=== PATIENT | male | born 1975 | race Two or more races ===

== ENCOUNTER 2017-06-10 07:51 | Emergency (ER) | payer OTHER ==
[~2017-06-10] VITALS: Ht 172.7 cm; Wt 88.6 kg
[2017-06-10 08:16] VITALS: BP 126/87; PULSE 102; RESP 18; O2SAT 100
--- NOTE | 2017-06-10 09:14 | ED.REPORT ---
HPI-Eye Problem Date of Service Jun 10, 2017 ED Provider: Dev Mar Pt is a generally healthy 41 y/o male presenting to the ED c/o bilateral eye pain onset this morning. 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 He was wearing a welding helmet with dark eye protectors at that time. This morning he woke up experiencing bilateral eye burning pain and redness with associated nasal congestion. It feels like something is scratching his eye and he is having difficulty keeping his eyes open. Nursing Notes Stated Complaint: EYES ARE RED AND BURNING Chief Complaint: Eye Nursing Notes Reviewed: Yes Allergies: Coded Allergies: No Known Allergies (Unverified , 06/10/17) Scheduled Polymyxin B Sulf/Trimethoprim (Polymyxin B-Tmp Eye Drops) 10 Ml Drops 1-2 GTTS AFFECT_EYE QID 7 days Scheduled PRN Ibuprofen (Ibuprofen) 800 Mg Tablet 800 MG PO TID PRN PRN For Pain Naphazoline HCl/Pheniramine (Allergy Eye Drops) 0.025 %-0.3 % Drops 1 GTT AFFECT _EYE QID PRN PRN For Itching diphenhydrAMINE HCl (Benadryl) 25 Mg Capsule 25 MG PO QID PRN PRN For Itching General Time Seen by MD: 09:12 Chief Complaint Both eyes affected, Pain after welding Hx Obtained From: Patient Arrived By: Walk-in Sudden in Onset?: No Onset Occurred: 1 - 4 hours ago Symptom Duration: Since onset Progression Since Onset: Constant Location: : Eye left: Eye right Quality: Burning Severity: Current: Moderate Severity: Maximum: Moderate Recent Healthcare: No recent hospitalization Similar Sx Previous: No Past Medical History Past Medical History Hyperlipidemia Past Surgical History None reported Smoking History Unknown if Ever Smoker Ambulatory Status Independent Review of Systems Constitutional: Denies: Fever Eyes: Reports: Eye pain bilateral, Redness bilateral Ears / Nose / Throat: Reports: Nasal congestion Complete sys rev & neg: except as marked. Physical Exam Initial Vital Signs Vital Signs (First) Date Time Temp Pulse Resp B/P Pulse Ox O2 Delivery O2 Flow Rate FiO2 06/10/17 08:16 102 18 126/87 100 Room Air Initial VS: Reviewed, Vital signs abnormal ENT: Mucous membranes moist, Conjunctiva normal Neck: Full range of motion Respiratory: No respiratory distress Cardiovascular: Intact distal pulses Abdomen / GI: No distention Extremities: Vascular intact, Neuro intact, No swelling Skin: Warm, Dry, No cyanosis Neurologic: Alert, Oriented, Nonfocal Psychiatric: Mood/affect normal, Behavior normal, Normal thought content Head / Eyes: Atraumatic, Normocephalic, PERRL, EOMI, No periorbital swelling, No scleral icterus, Visual acuity NL No hyphema or hypopyon. Mild conjunctival irritation and redness. No consensual photophobia. Clear anterior chamber. No fluorescein uptake. Both eyelids were everted and swept for FB which was negative. Slit lamp exam shows no FB. pH 7 in both eyes. Complete pain relief after tetracaine General/Constitutional: Awake, Alert, No acute distress, Cooperative, Not toxic appearing Appearance / Presentation: Positive: Uncomfortable Procedures Slit Lamp Exam Time: 10:15 Procedure Performed by: ED physician Which Eye: Both Dilating Agent & Anesthesia: Anesthesia: Tetracaine Re-Eval/Medical Decision Med Decision/Clinical Course Overall constellation of symptoms sounds allergic and patient had significant relief after Benadryl and Afrin however given his recent history of welding it may represent a very mild case of UV keratitis. Patient is occasions to cover both and instructed to follow-up with ophthalmology as needed. Return precautions given. Re-Evaluation/Progress #1: Time of Eval: 10:04 Patient Status: Condition improved, Moderate relief Re-Evaluation/Progress Note: Pt rechecked. Pain resolved after tetracaine. Slit lamp exam performed and negative. Re-Evaluation/Progress #2: Time of Eval: 10:48 Re-Evaluation/Progress Note: Pt rechecked. Informed pt of plan for discharge. Pt understands and agrees with plan for discharge. F/U instructions and RTER warnings given. All questions addressed. Counseled Regarding: Diagnosis, Need for follow-up, When/why to return to ED Discharge & Departure Primary Impression: Allergic reaction Encounter type: initial encounter Qualified Code: T78.40XA - Allergy, unspecified, initial encounter Additional Impression: UV keratitis Laterality: bilateral Qualified Code: H16.133 - Photokeratitis, bilateral Disposition: Home Discharge Condition All VS Reviewed: Yes Condition: Stable Additional Instructions: Overall your presentation suggests an allergic reaction given that you have symptoms of nasal congestion. You may have a very mild case of UV keratitis due to welding. Use Benadryl, ibuprofen, and the eyedrops prescribed to help with your symptoms. Follow up with eye doctor in the next 1-2 days. Follow up with your regular doctor as needed. Return to the ER as needed for worsening pain, visual changes or other concerns. [facility] Address: [address] [place] [id number] Referrals: [facility] (PCP) Scribe Attestation Portions of this note were transcribed by Javi Watts. I, Dr. Mar personally performed the history, physical exam and medical decision-making; I reviewed and confirmed the accuracy of the information in the transcribed note. copies to: [facility] Dev Mar DO Jun 10, 2017 09:14 JAVI WATTS Jun 10, 2017 09:25
[2017-06-10] MEDS ORDERED: Tetracaine 0.5% 4 mL Ophthalmic Solution ONE (09:23)
[2017-06-10] MEDS ORDERED: 0.9% Sodium Chloride Inhalation Solution ONE (09:24)
[2017-06-10] MEDS ORDERED: Fluorescein 0.6 mg Ophthalmic Strip ONE (09:24)
[2017-06-10] MEDS ORDERED: diphenhydrAMINE 25 mg Capsule PO ONE (09:25)
[2017-06-10] MEDS ORDERED: IBUP800T28 PO (10:41)
[2017-06-10] MEDS ORDERED: NAPH15DR63 AFFECT_EYE (10:41)
[2017-06-10] MEDS ORDERED: DIPH25CA6 PO (10:41)
[2017-06-10] MEDS ORDERED: POLY10DR3 AFFECT_EYE (10:41)
== END 2017-06-10 11:35 | disposition home or self-care (01) ==
LOC: SED 07:51
DX: T78.40XA Allergy, unspecified, initial encounter (principal); H16.133 Photokeratitis, bilateral; Y93.89 Activity, other specified; Y92.89 Other specified places as the place of occurrence of the external cause; Y99.8 Other external cause status; R09.81 Nasal congestion; E78.5 Hyperlipidemia, unspecified